=== PATIENT | male | born 1945 | race Caucasian/White ===

== ENCOUNTER 2023-06-01 13:27 | Emergency (ER) | payer MEDICARE, OTHER ==
[2023-06-01] MEDS ORDERED: Acetaminophen 500 MG TAB ONE (14:06)
[2023-06-01] MEDS ORDERED: Bacitracin 1 PK ONE (14:50)
[2023-06-01] MEDS ORDERED: Morphine 4 MG/ML VIAL ONE (15:14)
== END 2023-06-01 15:30 | disposition home or self-care (01) ==
LOC: MADERS 13:27
DX: S22.42XA Multiple fractures of ribs, left side, initial encounter for closed fracture (principal); N28.89 Other specified disorders of kidney and ureter; K86.89 Other specified diseases of pancreas; E11.9 Type 2 diabetes mellitus without complications; I10 Essential (primary) hypertension; Z79.84 Long term (current) use of oral hypoglycemic drugs; Z79.899 Other long term (current) drug therapy; Z79.82 Long term (current) use of aspirin; W18.49XA Other slipping, tripping and stumbling without falling, initial encounter; Y93.01 Activity, walking, marching and hiking
CPT/HCPCS: 74176; 94799; J2270